=== PATIENT | male | born 2000 | race African-American/Black ===

== ENCOUNTER 2023-11-30 19:34 | Emergency (ER) | payer SELFPAY ==
[~2023-11-30] VITALS: Ht 180.3 cm; Wt 63.0 kg
[2023-11-30 19:36] VITALS: O2SAT 97
[2023-11-30 19:44] VITALS: BP 117/95; PULSE 84; TEMP 98; O2SAT 99
[2023-11-30 22:00] VITALS: RESP 17
== END 2023-12-01 02:32 | disposition home or self-care (01) ==
LOC: ER 19:34
DX: S61.215D Laceration without foreign body of left ring finger without damage to nail, subsequent encounter (principal); W26.8XXD Contact with other sharp object(s), not elsewhere classified, subsequent encounter
CPT/HCPCS: 99281; Z7610